=== PATIENT | female | born 1960 | race Caucasian/White ===

== ENCOUNTER → 2017-05-06 | Outpatient (CLI) | payer OTHER ==
[2017-05-06 10:15] LABS: MEAN CORPUSCULAR HEMOGLOBIN 29.1 pg (27.0-33.0); MEAN CORPUSCULAR HGB CONC 33.6 g/dl (32.0-36.5); MEAN CORPUSCULAR VOLUME 86.7 fl (80.0-96.0); PLATELET COUNT, AUTOMATED 143 k/mm3 (150-450); WHITE BLOOD COUNT 7.9 K/mm3 (4.0-10.0)
[2017-05-06 10:45] LABS: EOSINOPHILS 7 % (0-5)
[2017-05-06 10:46] LABS: ALBUMIN 3.6 GM/DL (3.2-5.2); ALBUMIN/GLOBULIN RATIO 1.16 (1.00-1.93); ALKALINE PHOSPHATASE 67 U/L (45-117); ALT/SGPT 21 U/L (12-78); ANION GAP 6 MEQ/L (8-16); AST/SGOT 18 U/L (15-37); BILIRUBIN,TOTAL 0.5 MG/DL (0.2-1.0); BLOOD UREA NITROGEN 22 MG/DL (7-18); CALCIUM LEVEL 8.4 MG/DL (8.5-10.1); CARBON DIOXIDE LEVEL 26 MEQ/L (21-32); CHLORIDE LEVEL 113 MEQ/L (98-107); GLOMERULAR FILTRATION RATE > 60.0 (>51); GLUCOSE, FASTING 89 MG/DL (70-105); POTASSIUM SERUM 4.2 MEQ/L (3.5-5.1); SODIUM LEVEL 145 MEQ/L (136-145); TOTAL PROTEIN 6.7 GM/DL (6.4-8.2)
== END ==
LOC: M WUC 08:43
PROVIDERS: ATTEND Family Medicine
DX: Z00.00 Encounter for general adult medical examination without abnormal findings (principal)

== ENCOUNTER → 2017-06-11 | Outpatient (CLI) | payer OTHER ==
--- NOTE | 2017-06-11 09:58 | REPMRS ---
Patient History The patient states she had a clinical breast exam in 2016. Patient is postmenopausal and had first child at age 31. Family history of breast cancer in sister at age 45 and breast cancer in sister at age 42. Took hormonal contraceptives for 1 year. Patient states she has lost about 15 lbs since her last mammo Digital Mammo Screening Bilat: June 11, 2017 - Exam #: [id number] Bilateral CC and MLO view(s) were taken. Technologist: Patricia Suresh, Technologist Prior study comparison: May 26, 2016, bilateral digital mammo screening bilat performed at [facility]. May 02, 2015, bilateral digital mammo screening bilat performed at [facility]. April 05, 2014, bilateral bilat screen digital mammo, performed at [facility] ([facility]). FINDINGS: There are scattered fibroglandular densities. There has been no change in the appearance of the mammogram from the prior studies. There is a mild amount of scattered fibroglandular density which is fairly symmetric. There is no interval development of dominant mass, architectural distortion, or clustered microcalcification suggestive of malignancy. ASSESSMENT: BI-RADS/ACR category 1 mammogram. Negative. Recommendation Routine screening mammogram in 1 year (for women over age 40). This mammogram was interpreted with the aid of an FDA-approved computer-aided dectection system. Electronically Signed By: Rod Resendez MD 06/11/17 [id number]
== END ==
LOC: M RAD 09:26
PROVIDERS: ATTEND Obstetrics & Gynecology
DX: Z12.4 Encounter for screening for malignant neoplasm of cervix (principal)

== ENCOUNTER → 2017-10-25 | Outpatient (CLI) | payer OTHER ==
[2017-10-25 20:27] LABS: FREE T4 0.95 NG/DL (0.76-1.46)
== END ==
LOC: M WUC 16:08
PROVIDERS: ATTEND Family Medicine
DX: R93.8 Abnormal findings on diagnostic imaging of other specified body structures (principal)

== ENCOUNTER → 2017-11-26 | Outpatient (REF) | payer OTHER | LOC: M LAB REF 17:18 | DX: E04.1 Nontoxic single thyroid nodule (principal) ==

== ENCOUNTER → 2018-01-12 | Outpatient (CLI) | payer OTHER ==
[2018-01-12 19:35] LABS: ANION GAP 4 MEQ/L (8-16); BLOOD UREA NITROGEN 26 MG/DL (7-18); CALCIUM LEVEL 8.9 MG/DL (8.5-10.1); CARBON DIOXIDE LEVEL 29 MEQ/L (21-32); CHLORIDE LEVEL 110 MEQ/L (98-107); CREATININE FOR GFR 0.84 MG/DL (0.55-1.30); GLOMERULAR FILTRATION RATE > 60.0 (>51); GLUCOSE, FASTING 87 MG/DL (70-100); POTASSIUM SERUM 4.4 MEQ/L (3.5-5.1); SODIUM LEVEL 143 MEQ/L (136-145)
[2018-01-12 19:37] LABS: BASO # 0.1 10^3/uL (0.0-0.2); BASO % 0.7 % (0.0-1.0); HEMATOCRIT 40.5 % (36.0-47.0); HEMOGLOBIN 13.7 g/dl (12.0-16.0); IMMATURE GRANULOCYTE % 0.3 % (0-3.0); LYMPH # 2.7 10^3/uL (1.5-4.5); LYMPH % 35.5 % (24.0-44.0); MEAN CORPUSCULAR HEMOGLOBIN 28.8 pg (27.0-33.0); MEAN CORPUSCULAR HGB CONC 33.8 g/dl (32.0-36.5); MEAN CORPUSCULAR VOLUME 85.1 fl (80.0-96.0); MONO # 0.6 10^3/uL (0.0-0.8); MONO % 7.2 % (0.0-5.0); NEUTROPHILS # 4.3 10^3/uL (1.8-7.7); NEUTROPHILS % 56.3 % (36.0-66.0); PLATELET COUNT, AUTOMATED 131 10^3/uL (150-450); RED BLOOD COUNT 4.76 10^6/uL (4.00-5.40); RED CELL DISTRIBUTION WIDTH 12.4 % (11.5-14.5); WHITE BLOOD COUNT 7.7 10^3/uL (4.0-10.0)
== END ==
LOC: M WUC 17:15
DX: Z01.812 Encounter for preprocedural laboratory examination (principal)

== ENCOUNTER 2018-01-30 00:12 | Emergency (ER) | payer OTHER ==
[2018-01-30] MEDS: NITROGLYCERIN 0.4 MG SUBL TABLET SL ×7 (00:54→09:15)
[2018-01-30 01:02] LABS: BASO # 0.1 10^3/uL (0.0-0.2); BASO % 0.6 % (0.0-1.0); HEMATOCRIT 40.8 % (36.0-47.0); HEMOGLOBIN 13.6 g/dl (12.0-16.0); IMMATURE GRANULOCYTE % 0.2 % (0-3.0); LYMPH % 44.9 % (24.0-44.0); MEAN CORPUSCULAR HEMOGLOBIN 28.7 pg (27.0-33.0); MEAN CORPUSCULAR HGB CONC 33.3 g/dl (32.0-36.5); MEAN CORPUSCULAR VOLUME 86.1 fl (80.0-96.0); MONO # 0.7 10^3/uL (0.0-0.8); MONO % 7.9 % (0.0-5.0); NEUTROPHILS # 4.2 10^3/uL (1.8-7.7); NEUTROPHILS % 46.4 % (36.0-66.0); PLATELET COUNT, AUTOMATED 111 10^3/uL (150-450); RED BLOOD COUNT 4.74 10^6/uL (4.00-5.40); RED CELL DISTRIBUTION WIDTH 12.2 % (11.5-14.5)
[2018-01-30 01:08] LABS: D-DIMER QUANT 273.9 ng/ml (<500)
[2018-01-30] MEDS: ASPIRIN 81 MG CHEW TABLET PO (01:12)
[2018-01-30] MEDS: ONDANSETRON 4MG/2ML VIAL (J2405) IV (01:23)
[2018-01-30] MEDS: MORPHINE 4 MG/ML 1ML VIAL (J2270) IV (01:23)
[2018-01-30 01:28] LABS: ANION GAP 9 MEQ/L (8-16); BLOOD UREA NITROGEN 30 MG/DL (7-18); CALCIUM LEVEL 8.3 MG/DL (8.5-10.1); CARBON DIOXIDE LEVEL 25 MEQ/L (21-32); CHLORIDE LEVEL 109 MEQ/L (98-107); CPK CREATINE PHOSPHOKINASE 99 U/L (26-192); CREATININE FOR GFR 0.87 MG/DL (0.55-1.30); FREE T4 0.97 NG/DL (0.76-1.46); GLOMERULAR FILTRATION RATE > 60.0 (>51); GLUCOSE, FASTING 143 MG/DL (70-100); POTASSIUM SERUM 3.7 MEQ/L (3.5-5.1); SODIUM LEVEL 143 MEQ/L (136-145); TROPONIN I < 0.02 NG/ML (< 0.10)
[2018-01-30 01:33] LABS: MB/CK RELATIVE INDEX 1.01 (< OR =4)
[2018-01-30 08:11] LABS: CK-MB VALUE MASS 17.8 NG/ML (0.0-3.6); CPK CREATINE PHOSPHOKINASE 207 U/L (26-192); MB/CK RELATIVE INDEX 8.59 (< OR =4)
[2018-01-30] MEDS: HEPARIN DRIP 25,000 UNITS in APPROPRIATE DILUENT 1 EA IV (09:11)
[2018-01-30] MEDS ORDERED: NITROGLYCERIN 0.4 MG SUBL TABLET SL (09:15)
[2018-01-30 09:26] LABS: INR 1.07; PROTHROMBIN TIME 14.1 SECONDS (12.4-14.5)
[2018-01-30 09:27] LABS: PARTIAL THROMBOPLASTIN TIME 26.7 SECONDS (26.8-37.9)
[2018-01-30] MEDS: HEPARIN SOD (PORCINE) 5000 UNITS/ML VIAL IV (09:30)
[2018-01-30] MEDS: METOPROLOL TART 25 MG TABLET PO (09:30)
[2018-01-30] MEDS: MORPHINE 2 MG/ML 1ML SYRINGE (J2270) IV (09:31)
[2018-01-30] MEDS: NITROGLYCERIN 2% OINT 1 GM *U/D* PKT TOP (09:31)
[2018-01-30] MEDS: CLOPIDOGREL 300 MG TAB (PLAVIX) PO (09:31)
== END 2018-01-30 09:57 | disposition short-term general hospital (02) ==
LOC: M ED 00:12
DX: I21.3 ST elevation (STEMI) myocardial infarction of unspecified site (principal); Z79.899 Other long term (current) drug therapy; Z98.890 Other specified postprocedural states; Z82.49 Family history of ischemic heart disease and other diseases of the circulatory system; Z87.891 Personal history of nicotine dependence
CPT/HCPCS: J2270

== ENCOUNTER 2018-02-28 12:19 | Outpatient (RCR) | payer OTHER | END 2018-03-21 | LOC: M CR 12:19 | DX: Z51.89 Encounter for other specified aftercare (principal); Z98.61 Coronary angioplasty status (principal) | CPT/HCPCS: 93798 ==

== ENCOUNTER 2018-04-22 14:15 | Outpatient (RCR) | payer OTHER | END 2018-05-21 | LOC: M CR 14:15 | DX: Z51.89 Encounter for other specified aftercare (principal); Z98.61 Coronary angioplasty status | CPT/HCPCS: 93798 ==

== ENCOUNTER → 2018-05-12 | Outpatient (CLI) | payer OTHER ==
[2018-05-12 20:23] LABS: ALT/SGPT 35 U/L (12-78); AST/SGOT 23 U/L (7-37); CHOLESTEROL LEVEL 121 MG/DL (<200); CPK CREATINE PHOSPHOKINASE 106 U/L (26-192); HDL CHOLESTEROL 55 MG/DL (>40); LDL CHOLESTEROL 37.4 MG/DL (<100); NON-HDL-C 66 MG/DL; TRIGLYCERIDES LEVEL 143 MG/DL (<150)
== END ==
LOC: M WUC 17:20
DX: E78.4 Other hyperlipidemia (principal)
CPT/HCPCS: 84460

== ENCOUNTER → 2018-06-14 | Outpatient (CLI) | payer OTHER ==
[2018-06-14 19:45] LABS: ALBUMIN 3.8 GM/DL (3.2-5.2); ALBUMIN/GLOBULIN RATIO 1.12 (1.00-1.93); ALKALINE PHOSPHATASE 78 U/L (45-117); ALT/SGPT 27 U/L (12-78); ANION GAP 6 MEQ/L (8-16); AST/SGOT 31 U/L (7-37); BILIRUBIN,TOTAL 0.2 MG/DL (0.2-1.0); BLOOD UREA NITROGEN 17 MG/DL (7-18); CALCIUM LEVEL 8.5 MG/DL (8.5-10.1); CARBON DIOXIDE LEVEL 28 MEQ/L (21-32); CHLORIDE LEVEL 111 MEQ/L (98-107); CPK CREATINE PHOSPHOKINASE 186 U/L (26-192); CREATININE FOR GFR 0.77 MG/DL (0.55-1.30); FREE T4 0.85 NG/DL (0.76-1.46); GLOMERULAR FILTRATION RATE > 60.0 (>51); GLUCOSE, FASTING 93 MG/DL (70-100); POTASSIUM SERUM 4.1 MEQ/L (3.5-5.1); SODIUM LEVEL 145 MEQ/L (136-145); TOTAL PROTEIN 7.2 GM/DL (6.4-8.2)
[2018-06-14 19:49] LABS: TROPONIN I 2.74 NG/ML (< 0.10)
[2018-06-14 19:50] LABS: CK-MB VALUE MASS 8.2 NG/ML (<3.6)
[2018-06-14 19:54] LABS: BASO % 0.3 % (0.0-1.0); HEMATOCRIT 40.7 % (36.0-47.0); HEMOGLOBIN 13.4 g/dl (12.0-15.5); IMMATURE GRANULOCYTE % 0.3 % (0-3.0); LYMPH # 2.3 10^3/uL (1.5-4.5); LYMPH % 31.1 % (24.0-44.0); MEAN CORPUSCULAR HEMOGLOBIN 28.5 pg (27.0-33.0); MEAN CORPUSCULAR HGB CONC 32.9 g/dl (32.0-36.5); MEAN CORPUSCULAR VOLUME 86.6 fl (80.0-96.0); MONO # 0.6 10^3/uL (0.0-0.8); MONO % 8.5 % (0.0-5.0); NEUTROPHILS # 4.4 10^3/uL (1.8-7.7); NEUTROPHILS % 59.8 % (36.0-66.0); RED CELL DISTRIBUTION WIDTH 12.7 % (11.5-14.5); WHITE BLOOD COUNT 7.3 10^3/uL (4.0-10.0)
[2018-06-14 21:32] LABS: PLATELET COUNT, AUTOMATED 73 10^3/uL (150-450)
[2018-06-14 21:33] LABS: IMMATURE PLATELET FRACTION % 6.9 % (0.0-9.6)
== END ==
LOC: M WUC 17:13
DX: R07.1 Chest pain on breathing (principal)
CPT/HCPCS: 82550

== ENCOUNTER 2018-06-15 09:53 | Emergency (ER) | payer OTHER ==
[2018-06-15] MEDS: ASPIRIN 81 MG CHEW TABLET PO (10:23)
[2018-06-15 10:30] LABS: BASO % 0.4 % (0.0-1.0); HEMATOCRIT 40.1 % (36.0-47.0); HEMOGLOBIN 13.3 g/dl (12.0-15.5); IMMATURE GRANULOCYTE % 0.3 % (0-3.0); LYMPH # 1.8 10^3/uL (1.5-4.5); LYMPH % 26.3 % (24.0-44.0); MEAN CORPUSCULAR HEMOGLOBIN 28.6 pg (27.0-33.0); MEAN CORPUSCULAR HGB CONC 33.2 g/dl (32.0-36.5); MEAN CORPUSCULAR VOLUME 86.2 fl (80.0-96.0); MONO # 0.5 10^3/uL (0.0-0.8); MONO % 6.5 % (0.0-5.0); NEUTROPHILS # 4.6 10^3/uL (1.8-7.7); NEUTROPHILS % 66.5 % (36.0-66.0); RED BLOOD COUNT 4.65 10^6/uL (4.00-5.40); RED CELL DISTRIBUTION WIDTH 12.7 % (11.5-14.5); WHITE BLOOD COUNT 6.9 10^3/uL (4.0-10.0)
[2018-06-15 10:32] LABS: PLATELET COUNT, AUTOMATED 79 10^3/uL (150-450)
[2018-06-15 10:36] LABS: INR 1.09; PROTHROMBIN TIME 14.2 SECONDS (12.1-14.4)
[2018-06-15 10:58] LABS: ALBUMIN 3.5 GM/DL (3.2-5.2); ALBUMIN/GLOBULIN RATIO 0.92 (1.00-1.93); ALKALINE PHOSPHATASE 76 U/L (45-117); ALT/SGPT 26 U/L (12-78); ANION GAP 5 MEQ/L (8-16); AST/SGOT 25 U/L (7-37); BILIRUBIN,DIRECT 0.1 MG/DL (0.0-0.2); BILIRUBIN,TOTAL 0.2 MG/DL (0.2-1.0); BLOOD UREA NITROGEN 18 MG/DL (7-18); CALCIUM LEVEL 8.3 MG/DL (8.5-10.1); CARBON DIOXIDE LEVEL 26 MEQ/L (21-32); CHLORIDE LEVEL 112 MEQ/L (98-107); CPK CREATINE PHOSPHOKINASE 149 U/L (26-192); CREATININE FOR GFR 0.86 MG/DL (0.55-1.30); GLOMERULAR FILTRATION RATE > 60.0 (>51); GLUCOSE, FASTING 91 MG/DL (70-100); POTASSIUM SERUM 3.8 MEQ/L (3.5-5.1); SODIUM LEVEL 143 MEQ/L (136-145); TOTAL PROTEIN 7.3 GM/DL (6.4-8.2)
[2018-06-15 11:03] LABS: CK-MB VALUE MASS 3.7 NG/ML (<3.6); MB/CK RELATIVE INDEX 2.48 (< OR =4); NT-PRO BNP 2254 PG/ML (<125)
[2018-06-15 11:04] LABS: TROPONIN I 1.87 NG/ML (< 0.10)
[2018-06-15 11:12] LABS: D-DIMER QUANT < 270.0 ng/ml (<500)
[2018-06-15] MEDS: HEPARIN DRIP 25,000 UNITS in APPROPRIATE DILUENT 1 EA IV (11:23)
[2018-06-15] MEDS: HEPARIN SOD (PORCINE) 5000 UNITS/ML VIAL IV (11:24)
== END 2018-06-15 12:40 | disposition short-term general hospital (02) ==
LOC: M ED 09:53
DX: I21.4 Non-ST elevation (NSTEMI) myocardial infarction (principal); I25.10 Atherosclerotic heart disease of native coronary artery without angina pectoris
CPT/HCPCS: 93005

== ENCOUNTER → 2018-06-15 | Outpatient (CLI) | payer OTHER | LOC: M RAD 08:09 | DX: Z12.31 Encounter for screening mammogram for malignant neoplasm of breast (principal) | CPT/HCPCS: 77067 ==

== ENCOUNTER → 2018-06-20 | Outpatient (REF) | payer OTHER ==
[2018-06-20 12:51] LABS: APPEARANCE, URINE HAZY (CLEAR); BACTERIA, URINE AUTO NEGATIVE (NEGATIVE); BILIRUBIN, URINE AUTO NEGATIVE (NEGATIVE); BLOOD, URINE BLOOD 1+ (NEGATIVE); COLOR, URINE YELLOW (YELLOW); GLUCOSE, URINE (UA) AUTO NEGATIVE (NEGATIVE); KETONE, URINE AUTO NEGATIVE (NEGATIVE); LEUKOCYTE ESTERASE, URINE AUTO 2+ (NEGATIVE); MUCUS, URINE SMALL (NEGATIVE); NITRITE, URINE AUTO NEGATIVE (NEGATIVE); PROTEIN, URINE AUTO NEGATIVE (NEGATIVE); RBC, URINE AUTO 13 /HPF (0-3); SPECIFIC GRAVITY URINE AUTO 1.015 (1.002-1.035); SQUAMOUS EPITHELIAL CELL UR AU 0 /HPF (0-6); UROBILINOGEN, URINE AUTO 0.2 mg/dL (0.0-2.0); WBC, URINE AUTO 144 /HPF (0-3)
== END ==
LOC: M LAB REF 12:28
DX: R30.0 Dysuria (principal)

== ENCOUNTER → 2018-09-05 | Outpatient (CLI) | payer OTHER ==
[2018-09-05 13:59] LABS: ALBUMIN 3.9 GM/DL (3.2-5.2); ALBUMIN/GLOBULIN RATIO 1.26 (1.00-1.93); ALKALINE PHOSPHATASE 74 U/L (45-117); ALT/SGPT 28 U/L (12-78); ANION GAP 8 MEQ/L (8-16); AST/SGOT 15 U/L (7-37); BILIRUBIN,TOTAL 0.3 MG/DL (0.2-1.0); BLOOD UREA NITROGEN 17 MG/DL (7-18); CALCIUM LEVEL 8.7 MG/DL (8.5-10.1); CARBON DIOXIDE LEVEL 26 MEQ/L (21-32); CHLORIDE LEVEL 110 MEQ/L (98-107); CHOLESTEROL LEVEL 175 MG/DL (<200); CHOLESTEROL RISK RATIO 2.734 (<5); CREATININE FOR GFR 0.83 MG/DL (0.55-1.30); GLOMERULAR FILTRATION RATE > 60.0 (>51); GLUCOSE, FASTING 79 MG/DL (70-100); HDL CHOLESTEROL 64 MG/DL (>40); LDL CHOLESTEROL 85 MG/DL (<100); NON-HDL-C 111 MG/DL; POTASSIUM SERUM 4.4 MEQ/L (3.5-5.1); SODIUM LEVEL 144 MEQ/L (136-145); TRIGLYCERIDES LEVEL 132 MG/DL (<150)
== END ==
LOC: M WUC 09:59
DX: I10 Essential (primary) hypertension (principal)

== ENCOUNTER 2018-12-29 08:56 | Emergency (ER) | payer OTHER ==
[~2018-12-29] VITALS: Ht 160 cm; Wt 74.1 kg
[~2018-12-29 08:56] MED LIST: ASPI1TAB PO; ATEN25TA PO; CALC600T57 PO; FAMO20TA PO; LEXA1TAB2 PO; LIPI80TA PO; LIVA2TAB; MAGN250T3 PO; MELO7.5T7 PO; MULT1TAB10 PO; NITR0.4S14 SL; PLAV1TAB2 PO; TOPA50TA8 PO; TOPR25TA13 PO; ZOMI5TAB12 PO
--- NOTE | 2018-12-29 10:21 | REP ---
CT Head without contrast HISTORY: Migraine headache COMPARISON: None There is no intraparenchymal hemorrhage, acute infarct, mass or midline shift. The ventricular system is normal in appearance. There is no extra cerebral collection. There is no fracture. The visualized sinuses are clear. IMPRESSION: There is no intracranial lesion. Electronically Signed by Joaquin Palacio MD 12/29/2018 10:13 A
[2018-12-29] MEDS ORDERED: diphenhydrAMINE INJ 50MG/ML VIAL (J1200) IV ONE (10:45)
[2018-12-29] MEDS ORDERED: methylPREDNISolone INJ 125 MG/2 ML VIAL (J2930) IV ONE (10:45)
[2018-12-29] MEDS ORDERED: METOCLOPRAMIDE INJ 10MG/2ML VIAL (J2765) IV ONE (10:45)
[2018-12-29 12:02] VITALS: BP 117/70
== END 2018-12-29 12:15 | disposition home or self-care (01) ==
LOC: M ED 08:56
DX: G43.909 Migraine, unspecified, not intractable, without status migrainosus (principal); I25.2 Old myocardial infarction; I10 Essential (primary) hypertension; F41.9 Anxiety disorder, unspecified; Z79.82 Long term (current) use of aspirin; Z79.899 Other long term (current) drug therapy; Z88.8 Allergy status to other drugs, medicaments and biological substances
CPT/HCPCS: 70450; 96374; 96375; 99284; J1200; J2765; J2930

== ENCOUNTER → 2019-06-22 | Outpatient (CLI) | payer OTHER ==
[~2019-06-22] MED LIST changes: -ASPI1TAB PO; +ASPI81TA26 PO; +TOPR25TA PO; -TOPR25TA13 PO
--- NOTE | 2019-06-22 10:10 | REP ---
BILATERAL SCREENING DIGITAL MAMMOGRAM WITH 3D TOMOSYNTHESIS: There are no palpable abnormalities or other breast complaints. The the patient states she had a clinical breast examination November/2018. The Tyrer-Cuzick Score is: 21.9% . Comparisons are 04/05/2014, 05/26/2016, 06/11/2017 and 06/15/2018. There are scattered areas of fibroglandular density. There is a new 4 mm faintly visible nodule in the left breast approximately 3.5 cm behind the nipple on the CC view only. It is not identified on the MLO view. However, is not present on comparison studies. It is seen to best advantage on the tomosynthesis images. Impression: BIRADS/ACR category 0 mammogram. Incomplete, additional imaging evaluation is needed. . Recommendation: The the patient should return for spot magnification views and ultrasound of the new small nodular density in the left breast. This mammogram was interpreted with the aid of a FDA approved computer-aided detection system. A. Negative mammogram reports should not delay biopsy if a dominant or clinically suspicious mass is present. B. Not all breast cancers are identified by mammography or tomosynthesis. C. Adenosis and dense breasts may obscure an underlying neoplasm. Patient letter M0. Electronically Signed by Koko Wang MD 06/22/2019 10:01 A
== END ==
LOC: M RAD 08:31
PROVIDERS: ATTEND Obstetrics & Gynecology
DX: Z12.31 Encounter for screening mammogram for malignant neoplasm of breast (principal)

== ENCOUNTER → 2019-06-26 | Outpatient (CLI) | payer OTHER ==
--- NOTE | 2019-06-27 07:06 | REP ---
DIAGNOSTIC MAMMOGRAM LEFT BREAST AND LEFT BREAST ULTRASOUND: Multiple spot compression views of the left breast are performed. Correlation made with recent mammogram 06/22/2019 and compared to other prior studies. Today's spot compression views confirm the presence of a smoothly marginated left retroareolar nodule 4 mm in diameter. Margins are fairly smooth. Real-time sonographic evaluation of the left retroareolar region is performed. In the left retroareolar region there is a rounded hypoechoic nodule with diffuse internal echoes representing either a small solid nodule or complex cyst, measuring 4 mm in diameter. In the adjacent 10 o'clock region there is a cyst with low level echoes measuring 5 mm. IMPRESSION: ACR 3 probably benign. Smoothly marginated 4 mm retroareolar nodule left breast appears to represent a 4 mm complex cyst by ultrasound, alternatively this could represent a 4 mm solid nodule. Since the patient's lifetime risk of breast cancer is 21.9%, I would recommend MRI of the breasts with and without contrast, not only to determine if this nodule demonstrates suspicious enhancement but also to evaluate for other occult neoplasm. BIRADS 3: BI-RADS/ACR category 3 mammogram. Probably Benign Findings. The patient letter being requested is M3. Electronically Signed by Koko Ortega MD 06/27/2019 07:13 P
== END ==
LOC: M RAD 15:05
PROVIDERS: ATTEND Nurse Practitioner Women's Health
DX: N63.20 Unspecified lump in the left breast, unspecified quadrant (principal)

== ENCOUNTER → 2019-08-01 | Outpatient (CLI) | payer OTHER ==
[2019-08-01 09:18] LABS: CHOLESTEROL RISK RATIO 3.363 (<5)
== END ==
LOC: M WUC 08:17
PROVIDERS: ATTEND Internal Medicine Cardiovascular Disease
DX: I25.10 Atherosclerotic heart disease of native coronary artery without angina pectoris (principal)

== ENCOUNTER → 2019-08-11 | Outpatient (CLI) | payer OTHER ==
--- NOTE | 2019-08-11 13:47 | REP ---
REASON: Increasing hip pain bilaterally. COMPARISON: None. There is asymmetric hip joint space narrowing bilaterally right slightly greater than left. There is bilateral femoral head marginal osteophytosis right greater than left. There is right sided buttressing. There is no acute fracture, dislocation, or subluxation. IMPRESSION: Bilateral hip degenerative changes as described above. Electronically Signed by Jake Crystal DO 08/11/2019 03:56 P
== END ==
LOC: M WUC 12:16
PROVIDERS: ATTEND Physician Assistant Medical
DX: M16.0 Bilateral primary osteoarthritis of hip (principal); M25.759 Osteophyte, unspecified hip

== ENCOUNTER → 2019-11-02 | Outpatient (CLI) | payer OTHER ==
[2019-11-02 10:32] LABS: CHOLESTEROL RISK RATIO 2.014 (<5)
== END ==
LOC: M WUC 08:26
PROVIDERS: ATTEND Internal Medicine Cardiovascular Disease
DX: E78.2 Mixed hyperlipidemia (principal)

== ENCOUNTER → 2019-12-30 | Outpatient (CLI) | payer OTHER ==
--- NOTE | 2019-12-30 10:14 | REP ---
Clinical: Sprain. Technique: AP, lateral, bilateral oblique and sunrise views of the left knee. Findings: Generalized age-related changes are appreciated. No acute fracture or dislocation. No overt arthritic findings. No effusion. Impression: Generalized age-related changes. Electronically Signed by John Arrington MD 12/30/2019 10:05 A
== END ==
LOC: M WUC 09:37
PROVIDERS: ATTEND Physician Assistant
DX: S83.412A Sprain of medial collateral ligament of left knee, initial encounter (principal)

== ENCOUNTER → 2020-06-26 | Outpatient (REF) | payer OTHER ==
[2020-08-05 06:15] LABS: ANTINUCLEAR ANTIBODIES DIRECT See Separate Report
[2020-08-10 17:05] LABS: RHEUMATOID FACTOR QUANT < 10.0 IU/ML (<15.0); TOTAL 25(OH) VITAMIN D 28.7 NG/ML (30.0-100.0)
== END ==
LOC: M LABWUC 14:00
PROVIDERS: ATTEND Physician Assistant Medical
DX: M79.7 Fibromyalgia (principal); M25.50 Pain in unspecified joint

== ENCOUNTER → 2020-08-01 | Outpatient (CLI) | payer OTHER ==
[2020-08-01 14:37] LABS: PLATELET COUNT, AUTOMATED 110 10^3/uL (150-450)
[2020-08-01 14:47] LABS: INR 1.09; PROTHROMBIN TIME 14.3 SECONDS (11.8-14.0)
[2020-08-01 14:48] LABS: PARTIAL THROMBOPLASTIN TIME 31.7 SECONDS (25.0-38.4)
== END ==
LOC: M WUC 11:06
PROVIDERS: ATTEND Physician Assistant
DX: M51.37 Other intervertebral disc degeneration, lumbosacral region (principal)

== ENCOUNTER → 2020-09-04 | Outpatient (CLI) | payer OTHER | LOC: M LABSMTC 09:47 | PROVIDERS: ATTEND Physical Medicine & Rehabilitation | DX: Z20.828 Contact with and (suspected) exposure to other viral communicable diseases (principal) ==

== ENCOUNTER → 2020-09-04 | Outpatient (CLI) | payer OTHER ==
[2020-09-04 16:29] LABS: PLATELET COUNT, AUTOMATED 119 10^3/uL (150-450)
== END ==
LOC: M WUC 13:42
PROVIDERS: ATTEND Physical Medicine & Rehabilitation
DX: Z01.812 Encounter for preprocedural laboratory examination (principal)

== ENCOUNTER → 2020-10-07 | Outpatient (CLI) | payer OTHER ==
[2020-10-07 10:14] LABS: BASO % 0.5 % (0.0-1.0); HEMATOCRIT 44.2 % (36.0-47.0); HEMOGLOBIN 13.8 g/dl (12.0-15.5); LYMPH # 1.6 10^3/uL (1.5-5.0); LYMPH % 25.1 % (24.0-44.0); MEAN CORPUSCULAR HEMOGLOBIN 27.5 pg (27.0-33.0); MEAN CORPUSCULAR HGB CONC 31.2 g/dl (32.0-36.5); MEAN CORPUSCULAR VOLUME 88.2 fl (80.0-96.0); MONO # 0.3 10^3/uL (0.0-0.8); MONO % 5.4 % (0.0-5.0); NEUTROPHILS # 4.3 10^3/uL (1.5-8.5); NEUTROPHILS % 68.7 % (36.0-66.0); PLATELET COUNT, AUTOMATED 101 10^3/uL (150-450); RED BLOOD COUNT 5.01 10^6/uL (4.00-5.40); WHITE BLOOD COUNT 6.3 10^3/uL (4.0-10.0)
== END ==
LOC: M WUC 08:04
PROVIDERS: ATTEND Family Medicine
DX: D69.6 Thrombocytopenia, unspecified (principal)

== ENCOUNTER → 2020-10-07 | Outpatient (CLI) | payer OTHER ==
[2020-10-07 10:43] LABS: CHOLESTEROL RISK RATIO 1.945 (<5)
== END ==
LOC: M WUC 08:06
PROVIDERS: ATTEND Internal Medicine Cardiovascular Disease
DX: I25.10 Atherosclerotic heart disease of native coronary artery without angina pectoris (principal); E78.2 Mixed hyperlipidemia

== ENCOUNTER → 2020-10-07 | Outpatient (CLI) | payer OTHER | LOC: M WUC 08:08 | PROVIDERS: ATTEND Physician Assistant Medical | DX: E55.9 Vitamin D deficiency, unspecified (principal) ==

== ENCOUNTER → 2020-11-02 | Outpatient (CLI) | payer OTHER ==
[~2020-11-02] MED LIST changes: +REPA140I SC; +TOPA100T12 PO; +VITA200048 PO; +VITMTA PO
== END ==
LOC: M LABSMTC 10:50
PROVIDERS: ATTEND Anesthesiology
DX: Z01.818 Encounter for other preprocedural examination (principal); Z20.828 Contact with and (suspected) exposure to other viral communicable diseases

== ENCOUNTER 2020-11-07 06:10 | Day surgery (SDC) | payer OTHER ==
[~2020-11-07] VITALS: Ht 160 cm; Wt 83.9 kg
[~2020-11-07 06:10] MED LIST changes: +LR 1,000 ML IV ONE
[2020-11-07] MEDS ORDERED: fentaNYL 100 MCG/2 ML INJECTION (J3010) As Ordered ONE (07:18)
[2020-11-07] MEDS ORDERED: propofoL 200 MG/20 ML VIAL As Ordered ONE (07:18)
[2020-11-07] MEDS ORDERED: LIDOCAINE 2% 100MG/5ML SDV (FOR ANES.) As Ordered ONE (07:18)
[2020-11-07] MEDS ORDERED: dexameTHASONE 4 MG/ML 1ML VIAL (J1100 PER 1MG) As Ordered ONE (07:19)
[2020-11-07] MEDS ORDERED: ONDANSETRON 4MG/2ML VIAL As Ordered ONE (07:19)
[2020-11-07] MEDS ORDERED: MIDAZOLAM INJ 2MG/2ML VIAL (J2250 PER 1MG) As Ordered ONE (07:19)
[2020-11-07] MEDS ORDERED: KETOROLAC 60MG 2ML VIAL As Ordered ONE (07:56)
[2020-11-07] MEDS ORDERED: ACETAMINOPHEN 1000MG 100ML IV BTL (OFIRMEV) (J0131 PER 10MG) As Ordered ONE (08:02)
[2020-11-07] MEDS ORDERED: IBUPROFEN 600MG TAB PO PRN (09:30)
[2020-11-07] MEDS ORDERED: fentaNYL 100 MCG/2 ML INJECTION (J3010) IV PRN (09:30)
[2020-11-07] MEDS ORDERED: METOCLOPRAMIDE INJ 10MG/2ML VIAL (J2765 PER 1) IV PRN (09:30)
[2020-11-07] MEDS ORDERED: NORCO, ANEXSIA 5/325MG TABLET (HYDROcodone/ACETAMINOPHEN) PO PRN (09:30)
[2020-11-07] MEDS ORDERED: ONDANSETRON 4MG/2ML VIAL IV PRN (09:30)
[2020-11-07] MEDS ORDERED: oxyCODONE 5MG TAB PO PRN (09:30)
[2020-11-07] MEDS ORDERED: MEPERIDINE INJ 25 MG/ML VIAL (J2175) IV PRN (09:30)
[2020-11-07] MEDS ORDERED: LR 1,000 ML IV SCH ×2 (09:30)
[2020-11-07 10:30] VITALS: BP 132/87
--- NOTE | 2020-11-08 12:44 | RO ---
OPERATIVE NOTE DATE OF OPERATION: 11/07/2020 PREOPERATIVE DIAGNOSIS/INDICATIONS FOR SURGERY: This is a woman with painful Schriever's gland versus inclusion cyst versus Bartholin's. POSTOPERATIVE DIAGNOSIS: This is a woman with painful Schriever's gland versus inclusion cyst versus Bartholin's, small swollen Schriever's gland. PROCEDURE: Removal of Schriever's gland. SURGEON: Maude Ferguson MD SURGERY ASSISTANT: None. SPECIMEN: Gland. ANESTHESIA: LMA. BRIEF DESCRIPTION OF PROCEDURE/FINDINGS: Lolly was brought to the operating room where sufficient LMA anesthesia was induced. The right-sided lesion was smaller than in the office but was still palpable. Incision was made on the anteromedial aspect of the labia minor over the lesion. It was shelled out in this location, there was some oozing. I went ahead and sewed that. I did end up buttonholing the other side of the labia even though we tried to avoid that but this did help us work on controlled the tiny arterial pumper that we had. We were able to evaluate from both sides that we had good control and did make sure to palpate up into the vagina to milk any blood that was there to make sure that we did not have any hidden bleeding and we did deep closure with 2-0 until we had that under control and waited a few minutes with the incision open and confirmed it and then used 3-0 to close the incision and buttonhole. The procedure was ended. ESTIMATED BLOOD LOSS: About 30 mL. FLUID REPLACEMENT: Crystalloid. COMPLICATIONS: None. CONDITION AND DISPOSITION: Lolly tolerated the procedure well and was recovering in the recovery room in good condition.
== END 2020-11-07 10:55 | disposition home or self-care (01) ==
LOC: M SDC 06:10
PROVIDERS: ATTEND Obstetrics & Gynecology
DX: N36.8 Other specified disorders of urethra (principal); I10 Essential (primary) hypertension; E78.00 Pure hypercholesterolemia, unspecified; K21.9 Gastro-esophageal reflux disease without esophagitis; G47.33 Obstructive sleep apnea (adult) (pediatric); G43.909 Migraine, unspecified, not intractable, without status migrainosus; E04.1 Nontoxic single thyroid nodule; I25.2 Old myocardial infarction; Z79.899 Other long term (current) drug therapy; Z88.8 Allergy status to other drugs, medicaments and biological substances; Z95.5 Presence of coronary angioplasty implant and graft
CPT/HCPCS: 53270; 88304; J0131; J1100; J1885; J2250; J2405; J3010

== ENCOUNTER → 2021-05-12 | Outpatient (CLI) | payer OTHER ==
[~2021-05-12] MED LIST changes: -LR 1,000 ML IV ONE
[2021-05-12 14:45] LABS: ALBUMIN 3.7 GM/DL (3.2-5.2); ALT/SGPT 20 U/L (12-78); BILIRUBIN,TOTAL 0.2 MG/DL (0.2-1.0); BLOOD UREA NITROGEN 20 MG/DL (7-18); CALCIUM LEVEL 8.8 MG/DL (8.8-10.2); CARBON DIOXIDE LEVEL 27 MEQ/L (21-32); CHLORIDE LEVEL 110 MEQ/L (98-107); CREATININE FOR GFR 0.72 MG/DL (0.55-1.30); FREE T4 0.82 NG/DL (0.76-1.46); GLOMERULAR FILTRATION RATE > 60.0 (>45); GLUCOSE, FASTING 90 MG/DL (70-100); IRON (FE) 49 UG/DL (50-170); PERCENT SATURATION 16.9 % (13.2-45.0); POTASSIUM SERUM 3.8 MEQ/L (3.5-5.1); SODIUM LEVEL 142 MEQ/L (136-145); TOTAL IRON BINDING CAPACITY 290 UG/DL (250-450); TOTAL PROTEIN 7.2 GM/DL (6.4-8.2)
[2021-05-12 14:52] LABS: BASO % 0.4 % (0.0-1.0); EOS # 0.1 10^3/uL (0.0-0.5); EOS % 1.1 % (0.0-3.0); HEMATOCRIT 44.4 % (36.0-47.0); HEMOGLOBIN 14.3 g/dl (12.0-15.5); LYMPH # 2.2 10^3/uL (1.5-5.0); LYMPH % 26.2 % (24.0-44.0); MEAN CORPUSCULAR HGB CONC 32.2 g/dl (32.0-36.5); MEAN CORPUSCULAR VOLUME 86.9 fl (80.0-96.0); MONO # 0.5 10^3/uL (0.0-0.8); MONO % 6.6 % (2.0-8.0); NEUTROPHILS # 5.4 10^3/uL (1.5-8.5); NEUTROPHILS % 65.2 % (36.0-66.0); PLATELET COUNT, AUTOMATED 132 10^3/uL (150-450); RED BLOOD COUNT 5.11 10^6/uL (4.00-5.40); WHITE BLOOD COUNT 8.2 10^3/uL (4.0-10.0)
== END ==
LOC: M WUC 12:09
PROVIDERS: ATTEND Nurse Practitioner Family
DX: I10 Essential (primary) hypertension (principal); D69.6 Thrombocytopenia, unspecified; L65.9 Nonscarring hair loss, unspecified

== ENCOUNTER → 2021-09-11 | Outpatient (CLI) | payer OTHER | LOC: M WUC 08:17 | PROVIDERS: ATTEND Physician Assistant Medical | DX: E55.9 Vitamin D deficiency, unspecified (principal) ==

== ENCOUNTER → 2021-09-11 | Outpatient (CLI) | payer OTHER ==
[2021-09-11 10:13] LABS: CHOLESTEROL RISK RATIO 4.413 (<5)
== END ==
LOC: M WUC 08:15
PROVIDERS: ATTEND Internal Medicine Cardiovascular Disease
DX: I25.10 Atherosclerotic heart disease of native coronary artery without angina pectoris (principal); E78.2 Mixed hyperlipidemia

== ENCOUNTER → 2021-12-18 | Outpatient (CLI) | payer OTHER ==
[2021-12-18 10:22] LABS: BASO % 0.6 % (0.0-1.0); EOS # 0.2 10^3/uL (0.0-0.5); HEMATOCRIT 44.8 % (36.0-47.0); HEMOGLOBIN 14.3 g/dl (12.0-15.5); LYMPH # 1.6 10^3/uL (1.5-5.0); LYMPH % 23.2 % (24.0-44.0); MEAN CORPUSCULAR HEMOGLOBIN 28.2 pg (27.0-33.0); MEAN CORPUSCULAR HGB CONC 31.9 g/dl (32.0-36.5); MEAN CORPUSCULAR VOLUME 88.4 fl (80.0-96.0); MONO # 0.5 10^3/uL (0.0-0.8); NEUTROPHILS # 4.4 10^3/uL (1.5-8.5); NEUTROPHILS % 65.6 % (36.0-66.0); PLATELET COUNT, AUTOMATED 127 10^3/uL (150-450); RED BLOOD COUNT 5.07 10^6/uL (4.00-5.40); WHITE BLOOD COUNT 6.7 10^3/uL (4.0-10.0)
[2021-12-18 11:07] LABS: ALBUMIN 3.7 GM/DL (3.2-5.2); ALT/SGPT 29 U/L (12-78); BILIRUBIN,TOTAL 0.4 MG/DL (0.2-1.0); BLOOD UREA NITROGEN 18 MG/DL (7-18); CALCIUM LEVEL 8.5 MG/DL (8.8-10.2); CARBON DIOXIDE LEVEL 24 MEQ/L (21-32); CHLORIDE LEVEL 112 MEQ/L (98-107); CHOLESTEROL LEVEL 137 MG/DL (<200); CHOLESTEROL RISK RATIO 2.322 (<5); CREATININE FOR GFR 0.87 MG/DL (0.55-1.30); GLOMERULAR FILTRATION RATE > 60.0 (>45); GLUCOSE, FASTING 99 MG/DL (70-100); HDL CHOLESTEROL 59 MG/DL (>40); LDL CHOLESTEROL 37 MG/DL (<100); NON-HDL-C 78 MG/DL; SODIUM LEVEL 143 MEQ/L (136-145); TOTAL PROTEIN 7.1 GM/DL (6.4-8.2); TRIGLYCERIDES LEVEL 205 MG/DL (<150)
== END ==
LOC: M WUC 08:03
PROVIDERS: ATTEND Nurse Practitioner Family
DX: D69.6 Thrombocytopenia, unspecified (principal); I25.10 Atherosclerotic heart disease of native coronary artery without angina pectoris

== ENCOUNTER 2021-12-28 09:11 | Emergency (ER) | payer OTHER ==
[~2021-12-28] VITALS: Ht 160 cm; Wt 81.8 kg
[2021-12-28 10:06] LABS: BASO # 0.1 10^3/uL (0.0-0.2); BASO % 0.6 % (0.0-1.0); HEMATOCRIT 44.3 % (36.0-47.0); HEMOGLOBIN 14.7 g/dl (12.0-15.5); LYMPH # 1.5 10^3/uL (1.5-5.0); MEAN CORPUSCULAR HEMOGLOBIN 28.5 pg (27.0-33.0); MEAN CORPUSCULAR HGB CONC 33.2 g/dl (32.0-36.5); MONO # 0.3 10^3/uL (0.0-0.8); NEUTROPHILS # 6.8 10^3/uL (1.5-8.5); NEUTROPHILS % 79.1 % (36.0-66.0); PLATELET COUNT, AUTOMATED 119 10^3/uL (150-450); RED BLOOD COUNT 5.15 10^6/uL (4.00-5.40); WHITE BLOOD COUNT 8.7 10^3/uL (4.0-10.0)
[2021-12-28] MEDS ORDERED: ALIR75PE3 (10:09)
[2021-12-28] MEDS ORDERED: GNP250TA9 PO (10:10)
[2021-12-28 10:36] LABS: ALBUMIN 3.6 GM/DL (3.2-5.2); ALT/SGPT 22 U/L (12-78); BILIRUBIN,DIRECT < 0.1 MG/DL (0.0-0.2); BILIRUBIN,TOTAL 0.3 MG/DL (0.2-1.0); LIPASE 60 U/L (73-393); TOTAL PROTEIN 7.3 GM/DL (6.4-8.2)
[2021-12-28] MEDS ORDERED: cefTRIAXone SOD 1 GM in D5W MINI-BAG PLUS 50 ML IV ONE (12:00)
[2021-12-28] MEDS ORDERED: CEPH500C PO (12:55)
[2021-12-28 12:58] VITALS: BP 133/85
== END 2021-12-28 13:15 | disposition home or self-care (01) ==
LOC: M ED 09:11
DX: N30.90 Cystitis, unspecified without hematuria (principal); D18.09 Hemangioma of other sites; R91.8 Other nonspecific abnormal finding of lung field; I25.2 Old myocardial infarction; I10 Essential (primary) hypertension; E78.5 Hyperlipidemia, unspecified; R51.9 Headache, unspecified; G47.33 Obstructive sleep apnea (adult) (pediatric); Z88.8 Allergy status to other drugs, medicaments and biological substances; Z79.899 Other long term (current) drug therapy; Z87.891 Personal history of nicotine dependence; Z79.82 Long term (current) use of aspirin
CPT/HCPCS: 74176; 80047; 80076; 81001; 83690; 85025; 87086; 96365; 99284; J0696

== ENCOUNTER 2022-03-06 08:06 | Day surgery (SDC) | payer OTHER ==
[~2022-03-06] VITALS: Ht 160 cm; Wt 82.1 kg
[~2022-03-06 08:06] MED LIST changes: +ALIR75PE3; +CEPH500C PO; +GNP250TA9 PO; +LIDOCAINE 2% 100MG/5ML SDV (FOR ANES.) As Ordered ONE; +NS 1,000 ML IV ONE; +propofoL 200 MG/20 ML VIAL As Ordered ONE
[2022-03-06 11:04] VITALS: BP 136/86
== END 2022-03-06 11:06 | disposition home or self-care (01) ==
LOC: M OPP 08:06
PROVIDERS: ATTEND Internal Medicine Gastroenterology
DX: Z12.11 Encounter for screening for malignant neoplasm of colon (principal); K64.8 Other hemorrhoids; I25.2 Old myocardial infarction; I10 Essential (primary) hypertension; E78.5 Hyperlipidemia, unspecified; Z95.5 Presence of coronary angioplasty implant and graft; G47.30 Sleep apnea, unspecified; G43.909 Migraine, unspecified, not intractable, without status migrainosus; R12 Heartburn; K76.9 Liver disease, unspecified; Z88.8 Allergy status to other drugs, medicaments and biological substances; Z79.899 Other long term (current) drug therapy; Z79.82 Long term (current) use of aspirin

== ENCOUNTER 2022-04-01 17:28 | Emergency (ER) | payer OTHER ==
[~2022-04-01] VITALS: Ht 160 cm; Wt 81.8 kg
[~2022-04-01 17:28] MED LIST changes: -LIDOCAINE 2% 100MG/5ML SDV (FOR ANES.) As Ordered ONE; -NS 1,000 ML IV ONE; -propofoL 200 MG/20 ML VIAL As Ordered ONE
[2022-04-01] MEDS ORDERED: TOPI50TA9 (18:14)
[2022-04-02] MEDS ORDERED: predniSONE 20 MG TAB PO ONE (00:30)
[2022-04-02] MEDS ORDERED: PRED20TA PO (00:38)
[2022-04-02 00:44] VITALS: BP 135/70
== END 2022-04-02 01:00 | disposition home or self-care (01) ==
LOC: M ED 17:28
DX: M16.11 Unilateral primary osteoarthritis, right hip (principal); I10 Essential (primary) hypertension; Z88.8 Allergy status to other drugs, medicaments and biological substances
CPT/HCPCS: 73502; 99283; J7512

== ENCOUNTER → 2022-06-02 | Outpatient (CLI) | payer OTHER ==
[~2022-06-02] MED LIST changes: +ISOVUE-300 61% 50ML VIAL As Ordered ONE; +LIDOCAINE 1% MDV 20ML VIAL As Ordered ONE; +PRED20TA PO; +TOPI50TA9; +TRIAMCINOLONE ACETONIDE SUSP 40 MG/ML VIAL (J3301) As Ordered ONE
== END ==
LOC: M RADPRO 14:58
PROVIDERS: ATTEND Orthopaedic Surgery
DX: M16.11 Unilateral primary osteoarthritis, right hip (principal)
CPT/HCPCS: 20610; 76000; J3301; Q9967

== ENCOUNTER → 2022-06-03 | Outpatient (CLI) | payer OTHER ==
[~2022-06-03] MED LIST changes: -ISOVUE-300 61% 50ML VIAL As Ordered ONE; -LIDOCAINE 1% MDV 20ML VIAL As Ordered ONE; -TRIAMCINOLONE ACETONIDE SUSP 40 MG/ML VIAL (J3301) As Ordered ONE
== END ==
LOC: M RAD 07:14
PROVIDERS: ATTEND Orthopaedic Surgery
DX: M16.11 Unilateral primary osteoarthritis, right hip (principal)

== ENCOUNTER → 2022-10-13 | Outpatient (CLI) | payer OTHER ==
[~2022-10-13] MED LIST changes: +CLOP75TA99 PO; -PLAV1TAB2 PO
[2022-10-13 09:40] LABS: HEMOGLOBIN 14.6 g/dl (12.0-15.5); MEAN CORPUSCULAR HEMOGLOBIN 28.3 pg (27.0-33.0); MEAN CORPUSCULAR HGB CONC 32.4 g/dl (32.0-36.5); MEAN CORPUSCULAR VOLUME 87.2 fl (80.0-96.0); PLATELET COUNT, AUTOMATED 127 10^3/uL (150-450); RED BLOOD COUNT 5.16 10^6/uL (4.00-5.40); WHITE BLOOD COUNT 7.8 10^3/uL (4.0-10.0)
[2022-10-13 10:06] LABS: INR 1.06
[2022-10-13 10:11] LABS: ERYTHROCYTE SEDIMENTATION RATE 10 mm/hr (0-30)
[2022-10-13 10:53] LABS: ALBUMIN 3.8 G/DL (3.2-5.2); ALT/SGPT 19 U/L (7.0-40); BILIRUBIN,TOTAL 0.3 MG/DL (0.3-1.2); BLOOD UREA NITROGEN 19 MG/DL (9-23); CALCIUM LEVEL 8.7 MG/DL (8.3-10.6); CARBON DIOXIDE LEVEL 26 MMOL/L (20-31); CHLORIDE LEVEL 108 MMOL/L (98-107); CREATININE FOR GFR 0.78 MG/DL (0.55-1.30); GLOMERULAR FILTRATION RATE > 60.0 (>45); GLUCOSE, FASTING 102 MG/DL (74-106); POTASSIUM SERUM 3.8 MMOL/L (3.5-5.1); SODIUM LEVEL 143 MMOL/L (136-145); TOTAL PROTEIN 6.9 G/DL (5.7-8.2)
== END ==
LOC: M RAD 08:59
PROVIDERS: ATTEND Orthopaedic Surgery
DX: M16.11 Unilateral primary osteoarthritis, right hip (principal)

== ENCOUNTER → 2022-10-21 | Outpatient (CLI) | payer OTHER ==
[2022-10-21 11:50] LABS: BASO % 0.6 % (0.0-1.0); EOS # 0.2 10^3/uL (0.0-0.5); EOS % 3.1 % (0.0-3.0); HEMATOCRIT 44.2 % (36.0-47.0); HEMOGLOBIN 14.4 g/dl (12.0-15.5); LYMPH % 29.1 % (24.0-44.0); MEAN CORPUSCULAR HEMOGLOBIN 28.5 pg (27.0-33.0); MEAN CORPUSCULAR HGB CONC 32.6 g/dl (32.0-36.5); MEAN CORPUSCULAR VOLUME 87.4 fl (80.0-96.0); MONO # 0.4 10^3/uL (0.0-0.8); MONO % 5.4 % (2.0-8.0); NEUTROPHILS # 4.1 10^3/uL (1.5-8.5); NEUTROPHILS % 61.5 % (36.0-66.0); PLATELET COUNT, AUTOMATED 166 10^3/uL (150-450); RED BLOOD COUNT 5.06 10^6/uL (4.00-5.40); WHITE BLOOD COUNT 6.7 10^3/uL (4.0-10.0)
[2022-10-21 12:28] LABS: ALBUMIN 3.6 G/DL (3.2-5.2); ALKALINE PHOSPHATASE 78 U/L (46-116); ALT/SGPT 25 U/L (7.0-40); AST/SGOT 17 U/L (<34); BILIRUBIN,TOTAL 0.4 MG/DL (0.3-1.2); BLOOD UREA NITROGEN 16 MG/DL (9-23); CALCIUM LEVEL 8.8 MG/DL (8.3-10.6); CARBON DIOXIDE LEVEL 24 MMOL/L (20-31); CHLORIDE LEVEL 109 MMOL/L (98-107); CHOLESTEROL LEVEL 123 MG/DL (<200); CHOLESTEROL RISK RATIO 2.63 (<5); CREATININE FOR GFR 0.73 MG/DL (0.55-1.30); GLOMERULAR FILTRATION RATE > 60.0 (>45); GLUCOSE, FASTING 97 MG/DL (74-106); HDL CHOLESTEROL 46.6 MG/DL (>40); LDL CHOLESTEROL 46.8 MG/DL (<100); NON-HDL-C 76 MG/DL; POTASSIUM SERUM 4.6 MMOL/L (3.5-5.1); SODIUM LEVEL 144 MMOL/L (136-145); TOTAL PROTEIN 6.8 G/DL (5.7-8.2); TRIGLYCERIDES LEVEL 148 MG/DL (<150)
== END ==
LOC: M WUC 08:18
PROVIDERS: ATTEND Nurse Practitioner Family
DX: I10 Essential (primary) hypertension (principal); D69.6 Thrombocytopenia, unspecified

== ENCOUNTER → 2022-11-18 | Outpatient (CLI) | payer OTHER ==
[~2022-11-18] MED LIST changes: +ISOVUE-370 76% 100ML VIAL As Ordered ONE
== END ==
LOC: M RAD 11:14
PROVIDERS: ATTEND Nurse Practitioner Family
DX: R91.8 Other nonspecific abnormal finding of lung field (principal)

== ENCOUNTER → 2022-12-02 | Outpatient (REF) ==
[~2022-12-02] MED LIST changes: -ISOVUE-370 76% 100ML VIAL As Ordered ONE
== END ==
LOC: M PLAIMG 09:44
PROVIDERS: ATTEND Internal Medicine
DX: Z11.52 Encounter for screening for COVID-19 (principal)

== ENCOUNTER → 2023-02-18 | Outpatient (CLI) | payer OTHER ==
[~2023-02-18] MED LIST changes: +TOPI-254; -TOPI50TA9
[2023-02-18 14:41] LABS: BASO % 0.4 % (0.0-1.0); EOS # 0.2 10^3/uL (0.0-0.5); EOS % 3.1 % (0.0-3.0); HEMATOCRIT 44.2 % (36.0-47.0); HEMOGLOBIN 13.7 g/dl (12.0-15.5); LYMPH # 1.8 10^3/uL (1.5-5.0); LYMPH % 22.8 % (24.0-44.0); MEAN CORPUSCULAR HEMOGLOBIN 26.8 pg (27.0-33.0); MEAN CORPUSCULAR VOLUME 86.5 fl (80.0-96.0); MONO # 0.5 10^3/uL (0.0-0.8); MONO % 5.9 % (2.0-8.0); NEUTROPHILS # 5.3 10^3/uL (1.5-8.5); NEUTROPHILS % 67.4 % (36.0-66.0); PLATELET COUNT, AUTOMATED 118 10^3/uL (150-450); RED BLOOD COUNT 5.11 10^6/uL (4.00-5.40); WHITE BLOOD COUNT 7.9 10^3/uL (4.0-10.0)
[2023-02-18 14:55] LABS: ALBUMIN 3.7 G/DL (3.2-5.2); ALKALINE PHOSPHATASE 91 U/L (46-116); ALT/SGPT 16 U/L (7.0-40); AST/SGOT 14 U/L (<34); BILIRUBIN,TOTAL 0.2 MG/DL (0.3-1.2); BLOOD UREA NITROGEN 19 MG/DL (9-23); CARBON DIOXIDE LEVEL 27 MMOL/L (20-31); CHLORIDE LEVEL 110 MMOL/L (98-107); GLOMERULAR FILTRATION RATE > 60.0 (>45); GLUCOSE, FASTING 90 MG/DL (74-106); SODIUM LEVEL 142 MMOL/L (136-145); TOTAL PROTEIN 6.6 G/DL (5.7-8.2)
== END ==
LOC: M PLALAB 11:13
PROVIDERS: ATTEND Psychiatry & Neurology Neurology
DX: R51.9 Headache, unspecified (principal)

== ENCOUNTER → 2023-04-15 | Outpatient (CLI) | payer OTHER | LOC: M RAD 10:57 | PROVIDERS: ATTEND Physical Medicine & Rehabilitation | DX: M51.26 Other intervertebral disc displacement, lumbar region (principal) ==

== ENCOUNTER → 2023-05-10 | Outpatient (CLI) | payer OTHER ==
[2023-05-10 09:27] LABS: CHOLESTEROL RISK RATIO 2.6 (<5); HDL CHOLESTEROL 53.3 MG/DL (>40); LDL CHOLESTEROL 41.7 MG/DL (<100); NON-HDL-C 85.7 MG/DL
== END ==
LOC: M LAB 08:26
PROVIDERS: ATTEND Internal Medicine Cardiovascular Disease
DX: I25.10 Atherosclerotic heart disease of native coronary artery without angina pectoris (principal)

== ENCOUNTER → 2023-05-31 | Outpatient (CLI) | payer OTHER ==
[2023-05-31 18:58] LABS: PLATELET COUNT, AUTOMATED 102 10^3/uL (150-450)
[2023-05-31 19:14] LABS: INR 1.01; PROTHROMBIN TIME 13.5 SECONDS (12.5-14.5)
[2023-05-31 19:15] LABS: PARTIAL THROMBOPLASTIN TIME 29.2 SECONDS (24.8-34.2)
== END ==
LOC: M WUC 15:21
PROVIDERS: ATTEND Physical Medicine & Rehabilitation
DX: Z01.818 Encounter for other preprocedural examination (principal)

== ENCOUNTER → 2023-10-29 | Outpatient (CLI) | payer OTHER ==
[~2023-10-29] MED LIST changes: +TOPI-21; -TOPI-254
== END ==
LOC: M WUC 08:23
PROVIDERS: ATTEND Internal Medicine Cardiovascular Disease
DX: J21.9 Acute bronchiolitis, unspecified (principal); I25.10 Atherosclerotic heart disease of native coronary artery without angina pectoris

== ENCOUNTER → 2023-10-29 | Outpatient (REF) | payer OTHER ==
[2023-10-29 13:11] LABS: CHOLESTEROL RISK RATIO 2.47 (<5); HDL CHOLESTEROL 53.3 MG/DL (>40); LDL CHOLESTEROL 44.7 MG/DL (<100); NON-HDL-C 78.7 MG/DL
== END ==
LOC: M WUC 09:35
PROVIDERS: ATTEND Internal Medicine Cardiovascular Disease
DX: I25.10 Atherosclerotic heart disease of native coronary artery without angina pectoris (principal); E78.2 Mixed hyperlipidemia; I10 Essential (primary) hypertension

== ENCOUNTER → 2023-11-26 | Outpatient (CLI) | payer OTHER | LOC: M RAD 07:43 | PROVIDERS: ATTEND Nurse Practitioner Family | DX: Z87.891 Personal history of nicotine dependence (principal) ==

== ENCOUNTER → 2024-03-02 | Outpatient (CLI) | payer OTHER ==
[2024-03-02 16:34] LABS: BASO # 0.1 10^3/uL (0.0-0.2); BASO % 0.5 % (0.0-1.0); EOS # 0.1 10^3/uL (0.0-0.5); EOS % 0.6 % (0.0-3.0); HEMATOCRIT 44.9 % (36.0-47.0); HEMOGLOBIN 14.6 g/dl (12.0-15.5); LYMPH # 2.5 10^3/uL (1.5-5.0); LYMPH % 25.9 % (24.0-44.0); MEAN CORPUSCULAR HEMOGLOBIN 28.3 pg (27.0-33.0); MEAN CORPUSCULAR HGB CONC 32.5 g/dl (32.0-36.5); MONO # 0.5 10^3/uL (0.0-0.8); MONO % 5.6 % (2.0-8.0); NEUTROPHILS # 6.5 10^3/uL (1.5-8.5); RED BLOOD COUNT 5.16 10^6/uL (4.00-5.40); WHITE BLOOD COUNT 9.6 10^3/uL (4.0-10.0)
[2024-03-02 16:53] LABS: PLATELET COUNT, AUTOMATED 92 10^3/uL (150-450)
[2024-03-02 17:04] LABS: ALBUMIN 3.9 G/DL (3.2-5.2); ALKALINE PHOSPHATASE 81 U/L (46-116); ALT/SGPT 16 U/L (7.0-40); AST/SGOT 12 U/L (<34); BILIRUBIN,TOTAL 0.3 MG/DL (0.3-1.2); BLOOD UREA NITROGEN 18 MG/DL (9-23); CALCIUM LEVEL 9.1 MG/DL (8.3-10.6); CARBON DIOXIDE LEVEL 25 MMOL/L (20-31); CHLORIDE LEVEL 112 MMOL/L (98-107); GLOMERULAR FILTRATION RATE > 60.0 (>45); GLUCOSE, FASTING 102 MG/DL (74-106); SODIUM LEVEL 145 MMOL/L (136-145)
== END ==
LOC: M WUC 11:09
PROVIDERS: ATTEND Psychiatry & Neurology Neurology
DX: R51.9 Headache, unspecified (principal)

== ENCOUNTER → 2024-06-06 | Outpatient (CLI) | payer OTHER ==
[2024-06-06 12:23] LABS: BASO % 0.5 % (0.0-1.0); EOS # 0.3 10^3/uL (0.0-0.5); EOS % 3.5 % (0.0-3.0); HEMATOCRIT 45.3 % (36.0-47.0); HEMOGLOBIN 14.7 g/dl (12.0-15.5); LYMPH # 1.9 10^3/uL (1.5-5.0); LYMPH % 23.9 % (24.0-44.0); MEAN CORPUSCULAR HGB CONC 32.5 g/dl (32.0-36.5); MEAN CORPUSCULAR VOLUME 86.3 fl (80.0-96.0); MONO # 0.5 10^3/uL (0.0-0.8); MONO % 6.3 % (2.0-8.0); NEUTROPHILS # 5.3 10^3/uL (1.5-8.5); NEUTROPHILS % 65.4 % (36.0-66.0); PLATELET COUNT, AUTOMATED 60 10^3/uL (150-450); RED BLOOD COUNT 5.25 10^6/uL (4.00-5.40); WHITE BLOOD COUNT 8.1 10^3/uL (4.0-10.0)
[2024-06-06 12:57] LABS: THYROID STIMULATING HORMONE 2.396 uIU/ML (0.55-4.78)
[2024-06-06 12:59] LABS: ALBUMIN 3.8 G/DL (3.2-5.2); ALKALINE PHOSPHATASE 82 U/L (46-116); ALT/SGPT 18 U/L (7.0-40); AST/SGOT 8 U/L (<34); BILIRUBIN,TOTAL 0.4 MG/DL (0.3-1.2); BLOOD UREA NITROGEN 17 MG/DL (9-23); CALCIUM LEVEL 9.3 MG/DL (8.3-10.6); CARBON DIOXIDE LEVEL 25 MMOL/L (20-31); CHLORIDE LEVEL 108 MMOL/L (98-107); CHOLESTEROL LEVEL 136 MG/DL (<200); CHOLESTEROL RISK RATIO 2.59 (<5); CREATININE FOR GFR 0.77 MG/DL (0.55-1.30); FREE T4 0.96 NG/DL (0.89-1.76); GLOMERULAR FILTRATION RATE > 60.0 (>45); GLUCOSE, FASTING 83 MG/DL (74-106); HDL CHOLESTEROL 52.5 MG/DL (>40); LDL CHOLESTEROL 34.7 MG/DL (<100); NON-HDL-C 83.5 MG/DL; POTASSIUM SERUM 4.1 MMOL/L (3.5-5.1); SODIUM LEVEL 142 MMOL/L (136-145); TOTAL PROTEIN 6.8 G/DL (5.7-8.2); TRIGLYCERIDES LEVEL 244 MG/DL (<150)
== END ==
LOC: M PLALAB 08:54
PROVIDERS: ATTEND Nurse Practitioner Family
DX: I10 Essential (primary) hypertension (principal)

== ENCOUNTER → 2024-06-15 | Outpatient (CLI) | payer OTHER | LOC: M WHC 09:36 | PROVIDERS: ATTEND Nurse Practitioner Family | DX: M81.0 Age-related osteoporosis without current pathological fracture (principal) ==

== ENCOUNTER → 2024-06-19 | Outpatient (CLI) | payer OTHER | LOC: M RAD 16:03 | PROVIDERS: ATTEND Internal Medicine Critical Care Medicine | DX: R91.8 Other nonspecific abnormal finding of lung field (principal) ==

== ENCOUNTER → 2024-07-17 | Outpatient (CLI) | payer OTHER ==
[2024-07-17 13:26] LABS: PLATELET COUNT, AUTOMATED 71 10^3/uL (150-450)
[2024-07-17 13:35] LABS: INR 1.11; PARTIAL THROMBOPLASTIN TIME 29.3 SECONDS (24.8-34.2); PROTHROMBIN TIME 13.9 SECONDS (12.5-14.5)
== END ==
LOC: M LAB 11:40
PROVIDERS: ATTEND Physical Medicine & Rehabilitation
DX: Z01.812 Encounter for preprocedural laboratory examination (principal)

== ENCOUNTER → 2024-10-05 | Outpatient (CLI) | payer OTHER ==
[~2024-10-05] MED LIST changes: +ATOR-398 PO; +CVS1CHW13 PO; -LIPI80TA PO; +MV-M1TAB13 PO; -TOPI-21; +TOPI-21 PO; +VITA500C24 PO
== END ==
LOC: M RAD 08:44
PROVIDERS: ATTEND Internal Medicine Hematology & Oncology
DX: D69.6 Thrombocytopenia, unspecified (principal)

== ENCOUNTER → 2025-01-09 | Outpatient (CLI) | payer OTHER ==
[~2025-01-09] MED LIST changes: +FREM225A
== END ==
LOC: M RAD 13:17
PROVIDERS: ATTEND Physician Assistant Surgical
DX: S83.91XA Sprain of unspecified site of right knee, initial encounter (principal); X58.XXXA Exposure to other specified factors, initial encounter; Y92.9 Unspecified place or not applicable; Y93.9 Activity, unspecified; Y99.9 Unspecified external cause status; M25.461 Effusion, right knee; M71.21 Synovial cyst of popliteal space [Baker], right knee; M94.261 Chondromalacia, right knee; S83.281A Other tear of lateral meniscus, current injury, right knee, initial encounter

== ENCOUNTER → 2025-06-26 | Outpatient (CLI) | payer OTHER | LOC: M PLAIMG 07:28 | PROVIDERS: ATTEND Internal Medicine Critical Care Medicine | DX: R91.8 Other nonspecific abnormal finding of lung field (principal); I25.10 Atherosclerotic heart disease of native coronary artery without angina pectoris ==

== ENCOUNTER → 2025-06-27 | Outpatient (REF) | payer OTHER ==
[2025-06-27 19:19] LABS: PLATELET COUNT, AUTOMATED 72 10^3/uL (150-450)
== END ==
LOC: M LABWUC 17:32
PROVIDERS: ATTEND Dentist
DX: K01.1 Impacted teeth (principal)